=== PATIENT | female | born 1945 | race Caucasian/White ===

== ENCOUNTER → 2018-12-25 | Outpatient (REF) | payer MEDICARE ==
[~2018-12-25] MED LIST: AFRIN 12 HOUR0.05 %; ALENDRONATE70 MG PO; AMOXICILLIN875 MG OR; BENZONATATE200 MG PO; COD LIVER OI PO; DOXYCYCL HYC100 M3 PO; DOXYCYCL HYC100 MG PO; FLONASE NASAL50 MCG; FOSAMAX PLUS PO; MUCINEX600 MG PO; PREDNISONE10 MG PO; ZITHROMAX500 MG PO; ZOSTAVAX IM
[2018-12-25 09:30] LABS: ALBUMIN 4.3 g/dL (3.2-5.0); ALKALINE PHOSPHATASE 64 u/l (38-126); ANION GAP 12 (6-22 (CALC)); BILIRUBIN, TOTAL 0.8 mg/dL (0.0-1.4); BUN 15 mg/dL (8-23); BUN/CREATININE RATIO 20 (12-20 (CALC)); CALCULATED LDLCHOLESTEROL 144 mg/dL (62-129 (CALC)); CARBON DIOXIDE 29 mmol/l (22-30); CHLORIDE 103 mmol/l (95-108); CREATININE 0.8 mg/dL (0.5-1.0); GFR > 60 ML/MIN (>=60 (CALC)); GFR FOR AFR.AMER. > 60 ML/MIN (>=60 (CALC)); HDL CHOLESTEROL 81 mg/dL (>=40); POTASSIUM 4.3 mmol/l (3.5-5.1); SGOT/AST 25 u/l (9-36); SODIUM 140 mmol/l (137-146); TOTAL CHOLESTEROL 240 mg/dl (0-199); TOTAL PROTEIN 7.1 g/dL (6.3-8.2); TRIGLYCERIDES REFLEX TO dLDL 77 mg/dl (30-149); VLDL CHOLESTROL 15 mg/dl (0-48 (CALC))
== END | disposition home or self-care (01) ==
LOC: LAB 08:00
PROVIDERS: ATTEND Internal Medicine Geriatric Medicine
DX: E78.2 Mixed hyperlipidemia (principal)

== ENCOUNTER 2022-11-13 09:47 | Emergency (ER) | payer MEDICARE ==
[~2022-11-13] VITALS: Ht 157.5 cm; Wt 59.0 kg
[2022-11-13 09:57] VITALS: BP 165/89
[2022-11-13 10:00] VITALS: BP 158/74
[2022-11-13 10:31] VITALS: BP 152/63
[2022-11-13 11:00] VITALS: BP 155/74
[2022-11-13 11:14] VITALS: BP 155/74
== END 2022-11-13 11:32 | disposition home or self-care (01) ==
LOC: ED 09:47
PROC: 2W3TX1Z Immobilization of Left Foot using Splint (ICD-10-PCS; principal; 2022-11-13)
DX: S92.352A Displaced fracture of fifth metatarsal bone, left foot, initial encounter for closed fracture (principal); W54.1XXA Struck by dog, initial encounter; Y92.009 Unspecified place in unspecified non-institutional (private) residence as the place of occurrence of the external cause